=== PATIENT | male | born 1930 | race Caucasian/White ===

== ENCOUNTER 2017-07-04 14:55 | Emergency (ER) | payer MEDICARE, OTHER, SELFPAY ==
[~2017-07-04] VITALS: Ht 177.8 cm; Wt 61.4 kg
[2017-07-04] MEDS ORDERED: HYDR12.55 PO (15:05)
[2017-07-04] MEDS ORDERED: FLOM5CAP PO (15:05)
[2017-07-04] MEDS ORDERED: ATEN25TA PO (15:05)
[2017-07-04] MEDS ORDERED: ONDANSETRON 4MG/2ML VIAL (J2405) IV ONE (15:45)
[2017-07-04] MEDS ORDERED: MORPHINE 2 MG/ML 1ML SYRINGE IV ONE (15:45)
[2017-07-04] MEDS ORDERED: MORPHINE 2 MG/ML 1ML SYRINGE IV PRN (16:45)
--- NOTE | 2017-07-04 18:20 | REPUSA ---
MRI of the lumbar spine without contrast Clinical statement: Pain. Technique: Multiecho multiplanar MRI images of the lumbar spine were obtained without administration of contrast. No comparison is available. Findings: The lumbar vertebral bodies are in satisfactory position and alignment. No fractures or dis locations are demonstrated. Normal heterogeneous bone marrow signal is noted. No osseous tumors are s een. The intervertebral disc heights are narrowed at all levels, most severe at L4/L5. Loss of signal within the discs are noted. The filum terminale and conus medullaris appear unremarkable. The spinal cord demonstrates normal signal and contour. The surrounding soft tissues are within normal limits. The L1/L2 disc level is unremarkable. At L2/L3, there is a broad disc osteophyte complex and disc bulge. There is no evidence of disc herni ation or central canal stenosis. Moderately severe narrowing of the neural foramen is seen bilaterall y. At L3/L4, there is a broad disc osteophyte complex and disc bulge with small central disc protrusion. There is no evidence of central canal stenosis. Moderately severe narrowing of the neural foramen is seen bilaterally. At L4/L5, there is a broad disc osteophyte complex and disc bulge. There is no evidence of disc herni ation or central canal stenosis. Moderately severe narrowing of the neural foramen is seen bilaterall y. There is a minimal disc osteophyte complex and disc bulge at L5/S1. There is no evidence of central c anal stenosis or neural foraminal narrowing. Impression: 1. At L3/L4, central disc protrusion with disc osteophyte complex. 2. Broad disc osteophyte complexes and disc bulges at L2/L3 and L3/L4. 3. No evidence of central canal stenosis. Moderately severe bilateral neural foraminal narrowing at L 2/L3, L3/L4, and L4/L5. 4. Multilevel degenerative disc disease as described.
[2017-07-04] MEDS ORDERED: CYCL5TAB PO (18:57)
[2017-07-04] MEDS ORDERED: NORCOTAB PO (18:57)
[2017-07-04] MEDS ORDERED: NORCO 5/325MG TABLET (BULK FOR ED) PO ONE (19:00)
[2017-07-04 19:09] VITALS: BP 132/79
--- NOTE | 2017-07-05 13:20 | REP ---
RIGHT PELVIS AND RIGHT HIP: AP view of the pelvis and two views of the right hip are performed. There is no acute fracture or dislocation. There are mild degenerative changes at the right hip joint with mild joint space narrowing, subchondral sclerosis and spurring. Phleboliths are seen in the pelvis. IMPRESSION: Mild degenerative changes right hip. No fracture or dislocation. Signed by Caleb Travis MD 07/05/2017 07:03 P
--- NOTE | 2017-07-05 13:20 | REP ---
LUMBOSACRAL SPINE: Five views of the lumbosacral spine are performed. There is no compression fracture. There is no spondylolysis. There is minimal retrolisthesis of L2 on L3 and L3 on L4. There is mild diffuse spurring. There is disc space narrowing at all levels most significantly at L4-5. Vacuum phenomenon and subchondral sclerosis noted at L3-4 and L4-5. There is sclerosis of the posterior facet joints. Posterior elements are intact. There is curvature toward the right. IMPRESSION: Degenerative changes without evidence of acute fracture. Signed by Caleb Travis MD 07/05/2017 07:03 P
== END 2017-07-04 19:23 | disposition home or self-care (01) ==
LOC: M ED 14:55
DX: M54.17 Radiculopathy, lumbosacral region (principal); M51.26 Other intervertebral disc displacement, lumbar region; N40.0 Benign prostatic hyperplasia without lower urinary tract symptoms; I10 Essential (primary) hypertension; Z86.718 Personal history of other venous thrombosis and embolism; F17.200 Nicotine dependence, unspecified, uncomplicated; Z79.899 Other long term (current) drug therapy
CPT/HCPCS: 72110; 72148; 73502; 93041; 94760; 96374; 96375; 96376; 99284; J2405; J3360